=== PATIENT | male | born 1975 ===

== ENCOUNTER 2019-10-01 11:48 | Emergency (ER) | payer SELFPAY ==
[2019-10-01 16:19] LABS: Mean Corpuscular HGB Conc 29 % (30-34); Platelet Count 220 K/mm3 (140-440); Red Blood Count 3.14 M/mm3 (3.65-5.03)
[2019-10-01 16:28] LABS: Basophils % (Auto) 0.9 % (0.0-1.8); Eosinophils % (Auto) 1.6 % (0.0-4.3); Lymphocytes % (Auto) 41.5 % (13.4-35.0); Mean Corpuscular Volume 63 fl (79-97); Monocytes % (Auto) 7.2 % (0.0-7.3); Red Cell Distribution Width 24.5 % (13.2-15.2)
[2019-10-01 16:29] LABS: Basophils # (Auto) 0.1 K/mm3 (0.0-0.1); Eosinophils # (Auto) 0.1 K/mm3 (0.0-0.4); Lymphocytes # (Auto) 3.8 K/mm3 (1.2-5.4); Monocytes # (Auto) 0.7 K/mm3 (0.0-0.8)
[2019-10-01 16:32] LABS: Hematocrit 19.8 % (30.3-42.9); Hemoglobin 5.7 gm/dl (10.1-14.3)
[2019-10-01 16:40] LABS: Blood Urea Nitrogen 6 mg/dL (7-17); Calcium 8.9 mg/dL (8.4-10.2); Hemolysis Index 0
[2019-10-01 16:49] LABS: BUN/Creatinine Ratio 15
[2019-10-01] MEDS ORDERED: SODIUM CHLORIDE 0.9% 500 ML 500 ML IV ONE (17:01)
--- NOTE | 2019-10-01 17:07 | Emergency Department Report ---
ED General Adult HPI - General Chief complaint: Medical Clearance Stated complaint: DIZZY Time Seen by Provider: 10/01/19 16:55 Source: patient Mode of arrival: Ambulatory Limitations: No Limitations - History of Present Illness Initial comments: Patient is 44 years old male with no significant past medical history. Patient sent to the emergency room from his primary care physician office after patient found to have a low hemoglobin. Patient stated that he has been having dizziness and palpitation and that is what make him with his primary care ph ysician. Patient denied any chest pain or shortness of breath. Patient also denied any hematemesis, hematochezia, melena, hemoptysis or hematuria. Patient also denied taking any blood thinner medicine. Patient reported that he has been losing weight for the last 2 to 3 weeks. Patient stated that he lost approximately 30 pounds in 2 weeks. Patient denied any nausea or vomiting. Patient also denied any abdominal pain. Patient stated that he had a colonoscopy done 3 years ago for rectal bleeding and he was told that everything was normal at that time. Patient found to have a hemoglobin of 5.7 in the emergency room. - Related Data Allergies Allergy/AdvReac Type Severity Reaction Status Date / Time No Known Allergies Allergy Unverified 10/01/19 12:50 ED Review of Systems ROS: Stated complaint: DIZZY Other details as noted in HPI Comment: All other systems reviewed and negative Constitutional: denies: chills, fever Respiratory: denies: cough, shortness of breath, SOB with exertion Cardiovascular: palpitations. denies: chest pain Gastrointestinal: denies: abdominal pain, nausea, vomiting, diarrhea, constipation, hematemesis, melena, hematochezia Musculoskeletal: denies: back pain Neurological: denies: headache, weakness, numbness, paresthesias, confusion ED Past Medical Hx - Past Medical History Hx Hypertension: Yes - Surgical History Past Surgical History?: No - Social History Smoking Status: Never Smoker Substance Use Type: None ED Physical Exam - General Limitations: No Limitations General appearance: alert, in no apparent distress - Head Head exam: Present: atraumatic, normocephalic, normal inspection - Eye Eye exam: Present: normal appearance - ENT ENT exam: Present: normal exam, normal orophraynx, mucous membranes moist - Neck Neck exam: Present: normal inspection, full ROM. Absent: tenderness, meningismus - Respiratory Respiratory exam: Present: normal lung sounds bilaterally - Cardiovascular Cardiovascular Exam: Present: regular rate, normal heart sounds, systolic murmur - GI/Abdominal GI/Abdominal exam: Present: soft, normal bowel sounds. Absent: distended, tenderness, guarding, rebound, rigid, organomegaly, mass, bruit, pulsatile mass, hernia - Rectal Rectal exam: Present: heme (-) stool - Extremities Exam Extremities exam: Present: normal inspection, full ROM, normal capillary refill. Absent: pedal edema, calf tenderness - Back Exam Back exam: Present: normal inspection, full ROM. Absent: CVA tenderness (R), CVA tenderness (L) - Neurological Exam Neurological exam: Present: alert, oriented X3, CN II-XII intact, normal gait, reflexes normal - Psychiatric Psychiatric exam: Present: normal mood - Skin Skin exam: Present: warm, intact, normal color ED Course Vital Signs 10/01/19 12:49 Temperature 98.9 F Pulse Rate 84 Respiratory 16 Rate Blood Pressure 139/79 O2 Sat by Pulse 100 Oximetry ED Medical Decision Making - Lab Data Result diagrams: 10/01/19 16:07 10/01/19 16:07 - EKG Data -: EKG Interpreted by De EKG shows normal: sinus rhythm Rate: normal - Radiology Data Radiology results: report reviewed - Medical Decision Making Patient is 44 years old male with no significant past medical history. Patient sent to the emergency room from his primary care physician office after patient found to have a low hemoglobin. Patient stated that he has been having dizziness and palpitation and that is what make him with his primary care physician. Patient denied any chest pain or shortness of breath. Patient also denied any hematemesis, hematochezia, melena, hemoptysis or hematuria. Patient also denied taking any blood thinner medicine. Patient reported that he has been losing weight for the last 2 to 3 weeks. Patient stated that he lost approximately 30 pounds in 2 weeks. Patient denied any nausea or vomiting. Patient also denied any abdominal pain. Patient stated that he had a colonoscopy done 3 years ago for rectal bleeding and he was told that everything was normal at that time. Patient found to have a hemoglobin of 5.7 in the emergency room. Other labs are unremarkable. Patient brought for [address] abdomen and pelvis is negative for acute finding. I discussed the patient with Dr. Carpio, I recommended patient for admission. Critical Care Time: Yes Critical care time in (mins) excluding proc time.: 30 Critical care attestation.: If time is entered above; I have spent that time in minutes in the direct care of this critically ill patient, excluding procedure time. ED Disposition Clinical Impression: Acute anemia Disposition: OP ADMIT IP TO THIS HOSP Is pt being admited?: Yes Condition: Stable Referrals: PRIMARY CARE, [Primary Care Provider] - 3-5 Days
--- NOTE | 2019-10-01 17:27 | XRay Report ---
CHEST 1 VIEW 10/01/2019 4:20 PM INDICATION / CLINICAL INFORMATION: chest pain. COMPARISON: None available. FINDINGS: SUPPORT DEVICES: None. HEART / MEDIASTINUM: No significant abnormality. LUNGS / PLEURA: No significant pulmonary or pleural abnormality. No pneumothorax. ADDITIONAL FINDINGS: No significant additional findings. IMPRESSION: 1. No acute findings. Signer Name: Nick Horn MD Signed: 10/01/2019 5:22 PM Workstation Name: [id number]
--- NOTE | 2019-10-01 17:49 | Cat Scan Report ---
CT ABDOMEN AND PELVIS WITH IV CONTRAST INDICATION: abdominal pain. COMPARISON: None available. TECHNIQUE: All CT scans at this facility use dose modulation, automated exposure control, iterative reconstructi on or weight based dosing, when appropriate, to reduce radiation dose to as low as reasonably achieva ble. 100 cc Omnipaque 300 administered IV. FINDINGS: Lung Bases: No significant abnormality. Skeletal System: No acute abnormality. 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 ABDOMEN: Liver: There is a punctate focus of enhancement in the superior right hepatic lobe. The liver has a s omewhat nodular contour and there is mild enlargement of the caudate and left hepatic lobes with resp ect to the right lobe. Gallbladder: There is mild gallbladder wall edema. Bile Ducts: No significant abnormality. Pancreas: No significant abnormality. Spleen: Spleen measures approximately 14.3 cm in maximum dimension on coronal image 78. Adrenals: No significant abnormality. Right Kidney: No significant abnormality. Left Kidney: No significant abnormality. Upper GI tract: No significant abnormality. Lymph Nodes: No significant adenopathy. Aorta: No significant abnormality. Additional Findings: There are a few abdominal varices. There is mild mesenteric edema. Portal vein i s patent. No ascites. PELVIS: Colon: No acute abnormality. Urinary Bladder and Distal Ureters: No significant abnormality. Appendix: No significant abnormality. Lymph Nodes: No significant adenopathy. Additional Findings: None. IMPRESSION: 1. No acute process in the abdomen or pelvis. 2. Abnormal configuration to the liver is suggestive of hepatic cirrhosis. There are features of ear ly/mild portal hypertension, as above. Subcentimeter focus of enhancement in the superior right hepat ic lobe may be a flash filling hemangioma. However, in the presence of underlying cirrhosis, follow-u p is recommended. Signer Name: Jamil Mcdaniels MD Signed: 10/01/2019 5:44 PM Workstation Name: [id number]
[2019-10-01 18:38] LABS: INR 1.23 (0.87-1.13)
--- NOTE | 2019-10-01 20:32 | Event Note ---
Date: 10/01/19 44-year-old male presents to ED for evaluation. Patient was seen and evaluated by primary care physician and was found to have anemia. Patient presents to [facility] emergency department for further care and evaluation. Patient seen and evaluated in the emergency department. Lab and imaging studies reviewed. Patient was found to be Hemoccult negative. Patient found to have iron deficiency anemia. Patient treated with packed red blood cell transfusion. Patient medically optimized and back to usual state of health. Patient discharged home and instructed to follow-up with primary care physician within 1 week for follow-up care. Patient instructed to follow-up with gastroenterology for screening endoscopy. Follow-up with hematology as per primary care physician recommendations. ED Physical Exam - General Limitations: No Limitations General appearance: alert, in no apparent distress - Head Head exam: Present: atraumatic, normocephalic, normal inspection - Eye Eye exam: Present: normal appearance - ENT ENT exam: Present: normal exam, normal orophraynx, mucous membranes moist - Neck Neck exam: Present: normal inspection, full ROM. Absent: tenderness, meningismus - Respiratory Respiratory exam: Present: normal lung sounds bilaterally - Cardiovascular Cardiovascular Exam: Present: regular rate, normal heart sounds, systolic murmur - GI/Abdominal GI/Abdominal exam: Present: soft, normal bowel sounds. Absent: distended, tenderness, guarding, rebound, rigid, organomegaly, mass, bruit, pulsatile mass, hernia - Rectal Rectal exam: Present: heme (-) stool - Extremities Exam Extremities exam: Present: normal inspection, full ROM, normal capillary refill. Absent: pedal edema, calf tenderness - Back Exam Back exam: Present: normal inspection, full ROM. Absent: CVA tenderness (R), CVA tenderness (L) - Neurological Exam Neurological exam: Present: alert, oriented X3, CN II-XII intact, normal gait, reflexes normal - Psychiatric Psychiatric exam: Present: normal mood - Skin Skin exam: Present: warm, intact, normal color
[2019-10-02 00:47] VITALS: BP 138/76
== END 2019-10-02 01:00 | disposition home or self-care (01) ==
LOC: EDSEX 11:48 → ED 11:48
DX: D64.9 Anemia, unspecified (principal); I10 Essential (primary) hypertension
CPT/HCPCS: 36415; 36430; 71045; 74177; 80048; 84484; 85025; 85610; 85730; 86850; 86900; 86901; 86920; 93005; 99285; J7040; P9016; Q9967